=== PATIENT | female | born 1970 | race Caucasian/White ===

== ENCOUNTER 2017-08-18 07:14 | Day surgery (SDC) | payer BC ==
[~2017-08-18] VITALS: Ht 167.6 cm; Wt 112.5 kg
[~2017-08-18 07:14] MED LIST: BENHYD1012 PO; DULO30 PO; IBRANCE100 MG PO; IBUP600 PO; METF500 PO; Omeprazole20 M1 PO; ROSU10TA PO
== END 2017-08-18 09:29 | disposition home or self-care (01) ==
LOC: ORSCMMR 07:14
PROVIDERS: Internal Medicine Gastroenterology
PROC: 0DB58ZX Excision of Esophagus, Via Natural or Artificial Opening Endoscopic, Diagnostic (ICD-10-PCS; principal; 2017-08-18 08:30)
PROC: 0DB68ZX Excision of Stomach, Via Natural or Artificial Opening Endoscopic, Diagnostic (ICD-10-PCS; principal; 2017-08-18 08:30)
PROC: 0DB88ZX Excision of Small Intestine, Via Natural or Artificial Opening Endoscopic, Diagnostic (ICD-10-PCS; principal; 2017-08-18 08:30)
PROC: 0DB48ZX Excision of Esophagogastric Junction, Via Natural or Artificial Opening Endoscopic, Diagnostic (ICD-10-PCS; principal; 2017-08-18 08:30)
DX: K21.9 Gastro-esophageal reflux disease without esophagitis (principal); K29.00 Acute gastritis without bleeding; K20.9 Esophagitis, unspecified; I10 Essential (primary) hypertension; R13.10 Dysphagia, unspecified; E78.00 Pure hypercholesterolemia, unspecified; F32.9 Major depressive disorder, single episode, unspecified; F17.210 Nicotine dependence, cigarettes, uncomplicated; Z79.899 Other long term (current) drug therapy
CPT/HCPCS: 88305; 88342; J7120

== ENCOUNTER 2018-11-10 19:45 | Emergency (ER) | payer BC ==
[~2018-11-10] VITALS: Ht 165.1 cm; Wt 97.5 kg
[2018-11-10] MEDS ORDERED: METPRE4DP PO (19:52)
[2018-11-10] MEDS ORDERED: BUSP15 PO (19:52)
[2018-11-10] MEDS ORDERED: DOXE10 PO (19:53)
== END 2018-11-10 20:33 | disposition home or self-care (01) ==
LOC: ER 19:45
DX: S61.411A Laceration without foreign body of right hand, initial encounter (principal); S61.011A Laceration without foreign body of right thumb without damage to nail, initial encounter; W26.0XXA Contact with knife, initial encounter; Z88.0 Allergy status to penicillin; Z88.8 Allergy status to other drugs, medicaments and biological substances; Z79.899 Other long term (current) drug therapy; Z79.52 Long term (current) use of systemic steroids; Z79.84 Long term (current) use of oral hypoglycemic drugs; F17.200 Nicotine dependence, unspecified, uncomplicated
CPT/HCPCS: 12001; 99282-25

== ENCOUNTER 2020-03-26 06:08 | Day surgery (SDC) | payer BC ==
[~2020-03-26] VITALS: Ht 165.1 cm; Wt 98.3 kg
[~2020-03-26 06:08] MED LIST changes: +BUSP15 PO; +DOXE10 PO; +METPRE4DP PO
[2020-03-26] MEDS ORDERED: DOCU100 PO (17:46)
[2020-03-26] MEDS ORDERED: OXYC5 PO (17:46)
[2020-03-26] MEDS ORDERED: ONDA4ODT MM (17:48)
--- NOTE | 2020-03-26 18:05 | NUR ---
DISCHARGE AMBULATING EASILY, PAIN WELL CONTROLLED. EATING/DRINKING & VOIDING. VSS. DECLINES W/C OUT.
== END 2020-03-26 18:10 | disposition home or self-care (01) ==
LOC: ORSCMMR 06:08 → ORD 07:30 → SURS 10:12 → ORSCMMR 18:10 → SURS 18:10
PROVIDERS: Obstetrics & Gynecology
PROC: 0UT97ZZ Resection of Uterus, Via Natural or Artificial Opening (ICD-10-PCS; principal; 2020-03-26 07:30)
PROC: 0UQF0ZZ Repair Cul-de-sac, Open Approach (ICD-10-PCS; principal; 2020-03-26 07:30)
PROC: 0JQC0ZZ Repair Pelvic Region Subcutaneous Tissue and Fascia, Open Approach (ICD-10-PCS; principal; 2020-03-26 07:30)
DX: N81.9 Female genital prolapse, unspecified (principal); N80.0 Endometriosis of uterus; I10 Essential (primary) hypertension; F17.210 Nicotine dependence, cigarettes, uncomplicated; E66.01 Morbid (severe) obesity due to excess calories; Z68.36 Body mass index [BMI] 36.0-36.9, adult; Z79.84 Long term (current) use of oral hypoglycemic drugs
CPT/HCPCS: 88307; J0690; J1100; J1170; J1885; J2250; J2405; J2704; J3010; J7120